=== PATIENT | male | born 1970 | race African-American/Black ===

== ENCOUNTER 2019-05-10 16:15 | Emergency (ER) | payer SELFPAY ==
[~2019-05-10] VITALS: Ht 167.6 cm; Wt 95.5 kg
[2019-05-10 16:43] VITALS: BP 140/94
[2019-05-10] MEDS ORDERED: ASPI-556 PO (16:50)
[2019-05-10] MEDS ORDERED: GARL1TAB2 PO (16:50)
== END 2019-05-10 18:10 | disposition left against medical advice (07) ==
LOC: EMS 16:16
DX: R04.0 Epistaxis (principal); Z53.21 Procedure and treatment not carried out due to patient leaving prior to being seen by health care provider